=== PATIENT | male | born 1955 | race Hispanic/Latino ===

== ENCOUNTER 2018-07-27 10:52 | Emergency (ER) | payer MEDICAID ==
[2018-07-27 10:52] VITALS: BMI 44.1
[2018-07-27 11:22] VITALS: RESP 18; TEMP 98.4; O2SAT 98
--- NOTE | 2018-07-27 13:35 | ED PDOC ---
Lower Extremity Pain/Injury Time Seen by Provider: 07/27/18 11:27 Chief Complaint (Nursing): Lower Extremity Problem/Injury Chief Complaint (Provider): Right calf pain History Per: Patient History/Exam Limitations: no limitations Additional Complaint(s): 62 y/o M with hx of HTN, DM-II, CAD s/p stent on ASA, and lung disease who presents with Right calf pain x 3 weeks. Pt states that he was playing with his grandson about 3 weeks ago and was kicked in the Right side of his calf. He has had consistent pain since that time taking Aleve or Ibuprofen intermittently. He has had minimal relief with Aleve and has taken 400mg Ibuprofen with some improvement. He last took Aleve yesterday evening, nothing today for pain. Denies worsening of baseline SOB, chest pain or leg swelling. Past Medical History Reviewed: Historical Data, Nursing Documentation, Vital Signs Vital Signs: Last Vital Signs Temp 98.4 F 07/27/18 11:18 Pulse 91 H 07/27/18 11:18 Resp 18 07/27/18 11:18 BP 160/91 H 07/27/18 11:18 Pulse Ox 98 07/27/18 11:18 Primary Care Provider: Chadd Astudillo - Medical History PMH: CAD, CHF, HTN, Hypercholesterolemia Denies: HIV, Chronic Kidney Disease - Surgical History Surgical History: Coronary Stent - Family History Family History: States: Unknown Family Hx - Home Medications Home Medications: Ambulatory Orders Medication Instructions Recorded Albuterol Sulfate [Ventolin Hfa] 1 - 2 puff IH Q6H PRN #0 ml 01/09/14 Aspirin 81 mg PO DAILY #0 ect 01/09/14 Clopidogrel [Plavix] 75 mg PO DAILY #0 tab 01/09/14 Lisinopril/Hydrochlorothiazide 1 tab PO DAILY #0 tab 01/09/14 [Lisinopril-Hctz 20-25 mg Tab] Metoprolol Tartrate [Lopressor] 50 mg PO BID #0 tab 01/09/14 Pravastatin Sodium [Pravastatin] 40 mg PO DAILY #0 tab 01/09/14 Ibuprofen [Motrin Tab] 800 mg PO Q6 PRN 7 Days tab 07/27/18 - Allergies Allergies/Adverse Reactions: Allergies Allergy/AdvReac Type Severity Reaction Status Date / Time No Known Allergies Allergy Verified 05/30/19 11:22 Wells Criteria for PE - Wells Criteria for Pulmonary Embolism Clinical Signs and Symptoms of DVT: No P.E is #1 Diagnosis, or Equally Likely: No Heart Rate >100: No Immobilization at least 3 days;Surgery previous 4 weeks: No Previous, objectively diagnosed PE or DVT: No Hemoptysis: No Malignancy w/treatment within 6 months, or palliative: No Total Score: 0 Review of Systems Constitutional: Negative for: Fever, Chills Respiratory: Negative for: Shortness of Breath, Hemoptysis Musculoskeletal: Positive for: Leg Pain Physical Exam - Reviewed Nursing Documentation Reviewed: Yes Vital Signs Reviewed: Yes - Physical Exam Appears: Positive for: Well Cardiovascular/Chest: Positive for: Regular Rate, Rhythm Respiratory: Positive for: Normal Breath Sounds Pulses-Dorsalis Pedis (R): 2+ Extremity: Positive for: Normal ROM (with flexion and extension of Right ankle, knees and toes. ), Tenderness (Right lateral calf tenderness, negative Tania's sign), Capillary Refill <2 Sec. Negative for: Deformity, Swelling Neurological/Psych: Positive for: Awake, Alert, Oriented - ECG O2 Sat by Pulse Oximetry: 98 Medical Decision Making Medical Decision Making: RLE Venous Duplex Right Tib/fib x-ray Toradol 30mg IM x 1 Right Tib/fib x-ray: FINDINGS: BONES: No fracture or lytic lesion. Cortical hyperostoses suggested posterior tibia-remote trauma and healing here 1 consideration. Anterior tibial tuberosity cortical hyperostoses. Anterior patellar cortical hyperostoses and blending quadriceps insertional enthesophyte. Inferior medial and lateral malleolar spurring. Wheaton's tendon insertional enesthesophyte. JOINT SPACES: Knee joint and midfoot degenerative joint space narrowing suspect OTHER FINDINGS: Well corticated ossific density projects between the proximal tibia and fibula may be related to remote trauma a typical in appearance for vascular calcification. IMPRESSION: No acute fracture or lytic lesion seen. Other findings as above. RLE venous Duplex: IMPRESSION: No evidence of deep venous thrombosis in the right lower extremity. Pain has improved upon re-evaluation. STable for d/c home. Disposition - Clinical Impression Clinical Impression: Contusion of right calf - Patient ED Disposition Is Patient to be Admitted: No Counseled Patient/Family Regarding: Studies Performed, Diagnosis, Need For Followup, Rx Given - Disposition Referrals: Chadd Astudillo MD [Family Provider] - Disposition: Routine/Home Disposition Time: 14:50 Condition: STABLE Additional Instructions: Take Ibuprofen fairly regularly for the next couple of days and Tylenol in between for breakthrough pain. Return to ER if you develop worsening symptoms. Elevate your leg whenever able. Prescriptions: Ibuprofen [Motrin Tab] 800 mg PO Q6 PRN 7 Days tab PRN Reason: Pain, Moderate (4-7) Instructions: Contusion (DC) Forms: [employer] [place] (Japanese) Print Language: RUSSIAN
--- NOTE | 2018-07-27 13:40 | RAD ---
Date of service: 07/27/2018 PROCEDURE: Radiographs of the right tibia and fibula. HISTORY: kicked in RLE, pain x 3 weeks COMPARISON: None available TECHNIQUE: Frontal and lateral views obtained. 2 views obtained. FINDINGS: BONES: No fracture or lytic lesion. Cortical hyperostoses suggested posterior tibia-remote trauma and healing here 1 consideration. Anterior tibial tuberosity cortical hyperostoses. Anterior patellar cortical hyperostoses and blending quadriceps insertional enthesophyte. Inferior medial and lateral malleolar spurring. Jean's tendon insertional enesthesophyte. JOINT SPACES: Knee joint and midfoot degenerative joint space narrowing suspect OTHER FINDINGS: Well corticated ossific density projects between the proximal tibia and fibula may be related to remote trauma a typical in appearance for vascular calcification. IMPRESSION: No acute fracture or lytic lesion seen. Other findings as above.
--- NOTE | 2018-07-27 14:32 | US ---
Date of service: 07/27/2018 PROCEDURE: Right lower extremity venous duplex Doppler. HISTORY: RLE pain x 3 wks COMPARISON: None available. TECHNIQUE: Standard and duplex Doppler ultrasonography of the right extremity major deep veins was performed including graded compression and augmentation. Longitudinal and transverse projections have been submitted for interpretation. FINDINGS: Good compressibility, augmentation and normal phasic blood flow and morphology are identified at the right common and superficial femoral as well as popliteal veins with the posterior tibial vein appearing patent as well. OTHER FINDINGS: None. IMPRESSION: No evidence of deep venous thrombosis in the right lower extremity.
[2018-07-27 15:28] VITALS: BP 148/90; PULSE 89
== END 2018-07-27 13:05 | disposition home or self-care (01) ==
LOC: H.ER 10:52
DX: S80.11XA Contusion of right lower leg, initial encounter (principal); E78.00 Pure hypercholesterolemia, unspecified; I11.0 Hypertensive heart disease with heart failure; Z95.5 Presence of coronary angioplasty implant and graft; Z79.82 Long term (current) use of aspirin; I50.9 Heart failure, unspecified; I25.10 Atherosclerotic heart disease of native coronary artery without angina pectoris; W50.0XXA Accidental hit or strike by another person, initial encounter
CPT/HCPCS: 73590; 93971; 96372; 99283; J1885